=== PATIENT | female | born 1970 | race Caucasian/White ===

== ENCOUNTER → 2017-11-07 | Outpatient (CLI) | payer OTHER ==
--- NOTE | 2017-11-07 15:00 | RAD ---
Indication:Discomfort at right crest, pt states feels like an ovary. Happened once three months ago. Hurts to have clothing on skin. No past surgeries to abdomen. No change in bowel habits. TECHNIQUE: CT abdomen and pelvis without IV contrast with multiplanar reformats. COMPARISON: None FINDINGS: Limited evaluation of solid abdominal organs due to lack of IV contrast. Heart is normal in size. Clear lung bases. Diffuse hepatic steatosis. Liver is normal in morphology. Spleen is unenlarged. No radiopaque gallstones. No pericholecystic fluid or gallbladder wall thickening. Noncontrast pancreas is within normal limits. Abdomen glands demonstrate no nodularity. No nephrolithiasis or hydronephrosis. No enlarged retroperitoneal or pelvic adenopathy. No bowel obstruction. Normal appendix. Anteverted uterus. Urinary bladder demonstrates no radiopaque stones. No free pelvic fluid ascites. No suspicious bony lesion. IMPRESSION: Limited exam due to lack of IV contrast. No acute findings. 1. Hepatic steatosis. Electronically signed by: Mauri Evans DO (11/07/2017 2:57 PM) [facility]
== END | disposition home or self-care (01) ==
LOC: CT 14:03
PROVIDERS: ATTEND Nurse Practitioner Adult Health
DX: K76.0 Fatty (change of) liver, not elsewhere classified (principal)
CPT/HCPCS: 74176

== ENCOUNTER 2018-03-07 20:14 | Emergency (ER) | payer OTHER ==
[~2018-03-07] VITALS: Ht 154.9 cm; Wt 95.0 kg
[2018-03-07] MEDS ORDERED: PRED20TA PO (20:37)
--- NOTE | 2018-03-07 20:39 | PHYS DOC ---
Adult General Chief Complaint Chief Complaint Allergic reaction HPI HPI This is a very pleasant 48-year-old female who presented to the emergency department with swelling lips stated that she had been by food for dinner after that she noticed itching in her face and swollen lip on the right side denies any shortness of breath no chest pain no other symptoms Review of Systems Review of Systems Constitutional: Denies fever or chills [] Eyes: Denies change in visual acuity, redness, or eye pain [] HENT: Denies nasal congestion or sore throat [] Respiratory: Denies cough or shortness of breath [] Cardiovascular: No additional information not addressed in HPI [] GI: Denies abdominal pain, nausea, vomiting, bloody stools or diarrhea [] : Denies dysuria or hematuria [] Musculoskeletal: Denies back pain or joint pain [] Integument: Denies rash or skin lesions [] Neurologic: Denies headache, focal weakness or sensory changes [] Endocrine: Denies polyuria or polydipsia [] All other systems were reviewed and found to be within normal limits, except as documented in this note. Current Medications Current Medications Current Medications Medications (Trade) Dose Ordered Sig/Claude Start Time Stop Time Status Last Admin Dose Admin Prednisone (Prednisone) 60 mg 1X ONCE 03/07/18 20:45 03/07/18 20:46 UNV Allergies Allergies Allergies Coded Allergies Type Severity Reaction Last Updated Verified iodine Allergy Intermediate Unknown 03/07/18 Yes onion Allergy Unknown Unknown 03/07/18 Yes Uncoded Allergies Type Severity Reaction Last Updated Verified EGGPLANT Allergy Severe Unknown 03/07/18 IV DYE Allergy Unknown Unknown 03/07/18 Physical Exam Physical Exam Constitutional: Well developed, well nourished, no acute distress, non-toxic appearance. [] HENT: Normocephalic, atraumatic, bilateral external ears normal, oropharynx moist, no oral exudates, nose normal. [] Eyes: PERRLA, EOMI, conjunctiva normal, no discharge. [] Neck: Normal range of motion, no tenderness, supple, no stridor. [] Cardiovascular:Heart rate regular rhythm, no murmur [] Lungs & Thorax: Bilateral breath sounds clear to auscultation [] Abdomen: Bowel sounds normal, soft, no tenderness, no masses, no pulsatile masses. [] Skin: Warm, dry, no erythema, no rash. [] Back: No tenderness, no CVA tenderness. [] Extremities: No tenderness, no cyanosis, no clubbing, ROM intact, no edema. [] Neurologic: Alert and oriented X 3, normal motor function, normal sensory function, no focal deficits noted. [] Psychologic: Affect normal, judgement normal, mood normal. [] EKG EKG [] Radiology/Procedures Radiology/Procedures [] Course & Med Decision Making Course & Med Decision Making Pertinent Labs and Imaging studies reviewed. (See chart for details) [] Final Impression Final Impression [] Problems: (1) Allergic reaction Qualifiers: Qualified Codes: T78.40XA - Allergy, unspecified, initial encounter Dragon Disclaimer Dragon Disclaimer This electronic medical record was generated, in whole or in part, using a voice recognition dictation system. DAISY MANN MD Mar 07, 2018 20:39
[2018-03-07] MEDS: predniSONE 20 MG TABLET PO ONE (20:45)
[2018-03-07 20:50] VITALS: BP 140/70
== END 2018-03-07 20:45 | disposition home or self-care (01) ==
LOC: ER 20:14
DX: T78.40XA Allergy, unspecified, initial encounter (principal); Z91.041 Radiographic dye allergy status; Z91.018 Allergy to other foods; X58.XXXA Exposure to other specified factors, initial encounter
CPT/HCPCS: 99283; J7512